=== PATIENT | male | born 1995 | race Caucasian/White ===

== ENCOUNTER → 2019-08-12 10:57 | Outpatient (CLI) | payer OTHER, SELFPAY ==
[2019-08-12 11:34] LABS: Basophils # 0.1 K/mm3 (0-0.2); Basophils % 0.7 % (0.1-2.0); Eosinophils # 0.3 K/mm3 (0.0-0.4); Eosinophils % 3.5 % (0.1-12.0); Hemoglobin 14.2 g/dL (14.1-18.0); Lymphocytes # 2.6 K/mm3 (0.7-4.5); Lymphocytes % 27.4 % (10-50); Mean Corpuscular HGB Conc 33.8 g/dL (31.8-35.4); Mean Corpuscular Hemoglobin 26.7 pg (27.0-31.2); Mean Platelet Volume 7.4 fl (7.4-10.4); Monocytes # 0.5 K/mm3 (0.1-1.0); Monocytes % 5.5 % (1.7-9.3); Neutrophils # 5.9 K/mm3 (1.8-7.8); Neutrophils % 62.9 % (37.0-80.0); Platelet Count 339 K/mm3 (142-424); Red Blood Count 5.32 M/mm3 (4.60-6.20); Red Cell Distribution Width 14.1 % (11.5-17.5); White Blood Count 9.4 K/mm3 (4.8-10.8)
[2019-08-12 15:10] LABS: Alanine Aminotransferase 81 U/L (12-78); Albumin/Globulin Ratio 1.2 (1.1-1.8); Alkaline Phosphatase 79 U/L (46-116); Anion Gap 17.3 mEq/L (5-15); Aspartate Amino Transferase 30 U/L (15-37); Bilirubin,Total 0.4 mg/dL (0.2-1.0); Blood Urea Nitrogen 11 mg/dL (7-18); Calcium 9.3 mg/dL (8.5-10.1); Carbon Dioxide 24 mmol/L (21.0-32.0); Chloride 104 mmol/L (98-107); Creatinine,Serum 0.82 mg/dL (0.70-1.30); Estimated Glomerular Filt Rate 116 ml/min (>60); GFR (African American) 141 ML/MIN (>60); Globulin 3.4 gm/dl (1.3-3.2); Glucose 95 mg/dL (74-106); Potassium 4.3 mmoL/L (3.5-5.1); Sodium 141 mmol/L (136-145); Thyroid Stimulating Hormone 2.46 uIU/ml (0.358-3.740); Total Protein,Serum 7.4 gm/dL (6.4-8.2)
[2019-08-12 16:58] LABS: Hemoglobin A1C 5.8 % (0.0-7.0)
[2019-08-13 08:12] LABS: Iron 64 ug/dL (38-169); UIBC 279 ug/dL (111-343)
[2019-08-13 20:04] LABS: Iron Saturation 19 % (15-55); Vitamin B12 450 pg/mL (232-1245)
== END ==
PROVIDERS: Visit Provider Nurse Practitioner Psychiatric/Mental Health
DX: Z00.00 Encounter for general adult medical examination without abnormal findings (principal); Z79.899 Other long term (current) drug therapy
CPT/HCPCS: 36415; 80053; 82607; 82652; 83036; 83540; 83550; 84443; 85025

== ENCOUNTER 2021-05-11 17:01 | Emergency (ER) | payer BC, SELFPAY ==
[2021-05-11 17:10] VITALS: BP 122/75; PULSE 110; RESP 15; TEMP 36.8; O2SAT 97; BMI 39.0
--- NOTE | 2021-05-11 17:30 | HMH.EDUTC ---
[facility] [place] Disposition Clinical Impression: Otitis media Qualifiers: Otitis media type: suppurative Chronicity: acute Laterality: right Recurrence: non-recurrent Spontaneous tympanic membrane rupture: without spontaneous rupture Qualified Code(s): H66.001 - Acute suppurative otitis media without spontaneous rupture of ear drum, right ear Disposition: Home, Self-Care Condition on Discharge: Good Instructions: Middle Ear Infection Additional Instructions: Start antibiotic as soon as possible and be sure to take as ordered for full length of time even though he should start feeling better in 24-48 hours. Tylenol or Motrin as needed for pain or fever Encourage fluids, water, Gatorade, Powerade, Pedialyte if /toddler/child Warm compresses often helps when placed over ear Return immediately for new or worsening symptoms no noticeable improvement in 48-72 hours and in 10-14 days to ensure the ears are return to baseline. Follow-up with primary care Prescriptions: Amoxicillin [Amoxicillin 500mg Tab] 500 mg PO BID 10 Days #20 tab Prescription Printed Referrals: Matthew Celestin [Primary Care Provider] - Time of Disposition: 18:45 Medical Decision Making - Frank Inquiry Pt receiving controlled substance: No Vital Signs: 05/11/21 17:10 05/11/21 18:39 Temperature 98.2 F 98.5 F Temperature Source Oral Pulse Rate 112 H Pulse Rate [Left] 110 H Respiratory Rate 15 18 Blood Pressure 123/77 Blood Pressure [Right Arm] 122/75 Blood Pressure Mean [Right Arm] 90 02 Sat by Pulse Oximetry 97 - Lab Data Lab Results 05/11/21 16:25: SARS-CoV-2 (PCR) Not detected, Influenza A Untype (PCR) Not detected, Influenza Type B (PCR) Not detected Orders (Tests/Meds): ED MEDICATIONS Discontinued Medications Generic Name Dose Route Start Last Admin Trade Name Freq PRN Reason Stop Dose Admin Ibuprofen 400 mg 05/11/21 17:25 05/11/21 17:40 Ibuprofen 400 Mg Tablet PO 05/11/21 17:26 400 mg ONCE ONE Administration [facility] [place] HPI - General Chief complaint: Urgent Treatment Center Stated complaint: flu/covid tests Time Seen by Provider: 05/11/21 17:30 Mode of Arrival: Ambulatory Source of Information: Patient Limitations: No Limitations Description of Symptoms (Recalled from Triage Doc. by RN): pt c/o body aches, fever, LEONARDO, dizziness and chills. HEENT Symptoms (Recalled from RN notes): Yes (LEONARDO and dizziness) Resp Symptoms (Recalled from RN notes): No Skin Symptoms (Recalled from RN notes): No MS Symptoms (Recalled from RN notes): No Functional Status (Recalled from RN notes): body aches - History of Present Illness Provider Complaint: 26 yr old male presents for hz,fever,chills,body aches and cough that started today. pt states he has been around people with the flu - Related Data Previous Rx's Medication Instructions Recorded sertraline 50 mg tablet 50 mg PO DAILY #30 tab 09/09/19 Amoxicillin [Amoxicillin 500mg Tab] 500 mg PO BID 10 Days #20 tab 05/11/21 Allergies Allergy/AdvReac Type Severity Reaction Status Date / Time No Known Allergies Allergy Unverified 09/09/19 11:15 - Worker's Comp Is this a Worker's Comp case?: No [facility] History - Hepatitis A Screen Drug use history?: No High risk sexual behaviors?: No History of sexually transmitted infection?: No Currently employed?: No Childcare worker?: No Do you have indoor plumbing?: Yes Do you have electricity?: Yes Attestation statement:: This patient has been screened for Hepatitis A risk factors. I have reviewed the patient's past medical history: Yes - Social History Smoking Status: Former smoker (he will smoke a cigar every now and then; maybe 3 times per year) Alcohol Intake: current Alcohol Intake Frequency:: holidays/special occasions only Substance Use Type: denies use, marijuana (has tried this before; last time was at least a year ago) Occupational Status: employed ROS Obtained: Yes All systems reviewed & no additional com
[2021-05-11 17:41] LABS: Coronavirus 19, PCR Not Detected (NotDetected); Influenza A, PCR Not Detected (NotDetected); Influenza B, PCR Not Detected (NotDetected)
[2021-05-11 18:39] VITALS: BP 123/77; PULSE 112; RESP 18; TEMP 36.9
== END 2021-05-11 18:47 | disposition home or self-care (01) ==
PROVIDERS: Emergency Provider Nurse Practitioner Family; PCP Family Medicine
DX: H66.001 Acute suppurative otitis media without spontaneous rupture of ear drum, right ear (principal)
CPT/HCPCS: 99202; G0463; U0003

== ENCOUNTER 2025-08-21 09:25 | Outpatient (CLI) | payer BC, SELFPAY ==
[2025-08-21 09:46] LABS: Hematocrit 43.6 % (42.0-52.0); Hemoglobin 14.4 g/dL (14.1-18.0); Immature Granulocytes % 0.3 %; Mean Corpuscular HGB Conc 33.0 g/dL (31.8-35.4); Mean Corpuscular Hemoglobin 26.1 pg (27.0-31.2); Mean Corpuscular Volume 79.0 fl (80-94); Nucleated Red Blood Cells % 0 %; Platelet Count 321 K/mm3 (142-424); Red Blood Count 5.52 M/mm3 (4.60-6.20); Red Cell Distribution Width-SD 39.4 fL; White Blood Count 8.9 K/mm3 (4.8-10.8)
[2025-08-22 08:14] LABS: FSH 2.0 mIU/mL (1.5-12.4); LH 4.6 mIU/mL (1.7-8.6); Testosterone,Total 258 ng/dL (264-916)
== END 2025-08-21 23:59 | disposition home or self-care (01) ==
LOC: LAB 09:28
PROVIDERS: PCP Nurse Practitioner Family; Visit Provider Urology
DX: R53.83 Other fatigue (principal)
CPT/HCPCS: 36415; 82627; 82642; 82670; 83001; 83002; 84146; 84270; 84403; 85025

== ENCOUNTER 2025-10-02 09:00 | Outpatient (CLI) | payer BC, SELFPAY ==
[2025-10-03 03:36] LABS: PSA, Free 0.30 ng/mL; Testosterone,Total 406 ng/dL (264-916)
== END 2025-10-02 23:59 | disposition home or self-care (01) ==
LOC: LAB 09:01
PROVIDERS: PCP Nurse Practitioner Family; Visit Provider Urology
DX: R53.83 Other fatigue (principal)
CPT/HCPCS: 36415; 84153; 84154; 84403